=== PATIENT | male | born 1945 | race Caucasian/White ===

== ENCOUNTER 2021-08-13 09:34 | Day surgery (SDCO) | payer MEDICARE ==
[~2021-08-13] VITALS: Ht 177.8 cm; Wt 99.8 kg
[2021-08-13 09:59] LABS: BASOPHIL 0.8 % (0-2); EOSINOPHIL 3.3 % (0-7); HCT 42.3 % (42.0-52.0); HGB 14.2 g/dl (13.2-18.0); LYMPHOCYTE 9.1 % (15-48); MCH 33.6 pg (25.0-31.0); MCHC 33.6 g/dL (32.0-36.0); MONOCYTE 8.6 % (0-12); MPV 9.1 fL (6.0-9.5); NEUTROPHIL 77.2 % (41-80); NRBC 0; PLT 284 K/uL (150-400); RBC 4.23 M/uL (4.70-6.00); RDW 13.3 % (11.5-14.0); WBC 6.1 K/uL (4.0-10.5)
[2021-08-13 10:24] LABS: ALBUMIN 3.3 g/dL (3.4-5.0); BILIRUBIN - TOTAL 0.6 mg/dL (0.2-1.0); BUN/CREAT RATIO (CALC) 22.1 RATIO; CREATININE 1.22 mg/dL (0.67-1.17); GLOBULIN (CALCULATION) 4.6 g/dL; POTASSIUM 4.5 mmol/L (3.5-5.1); TOTAL PROTEIN 7.9 g/dL (6.4-8.2)
[2021-08-13] MEDS ORDERED: CLEOCIN300 MG PO (15:53)
[2021-08-13] MEDS ORDERED: FENOFIBRATE160 MG PO (15:56)
[2021-08-13] MEDS ORDERED: LASIX40 MG PO (15:57)
[2021-08-13] MEDS ORDERED: GLUCOTROL XL5 MG PO (15:57)
[2021-08-13] MEDS ORDERED: HYDROCODON-ACE1 EAC2 PO (15:59)
[2021-08-13] MEDS ORDERED: KLOR-CON 1010 MEQ PO (16:00)
[2021-08-13] MEDS ORDERED: JARDIANCE25 MG PO (16:00)
[2021-08-13] MEDS ORDERED: LISINOPRIL30 MG PO (16:02)
[2021-08-13] MEDS ORDERED: LOVASTATIN20 MG PO (16:03)
[2021-08-13] MEDS ORDERED: METFORMIN HCL500 MG PO (16:05)
[2021-08-13] MEDS ORDERED: FLOMAX0.4 MG PO (16:06)
[2021-08-14 06:10] LABS: BASOPHIL 0.4 % (0-2); EOSINOPHIL 2.7 % (0-7); HCT 44.8 % (42.0-52.0); HGB 14.9 g/dl (13.2-18.0); LYMPHOCYTE 13.9 % (15-48); MCH 33.1 pg (25.0-31.0); MCHC 33.3 g/dL (32.0-36.0); MCV 99.6 fL (78.0-100.0); MONOCYTE 8.2 % (0-12); MPV 9.3 fL (6.0-9.5); NEUTROPHIL 73.8 % (41-80); NRBC 0; PLT 297 K/uL (150-400); RDW 13.2 % (11.5-14.0); WBC 8.3 K/uL (4.0-10.5)
[2021-08-14 06:30] LABS: BUN/CREAT RATIO (CALC) 21.6 RATIO; CREATININE 1.16 mg/dL (0.67-1.17); POTASSIUM 4.6 mmol/L (3.5-5.1); URIC ACID 8.2 mg/dL (3.5-7.2)
[2021-08-14] MEDS ORDERED: COLCRYS0.6 MG PO (09:46)
[2021-08-14] MEDS ORDERED: ZYVOX600 MG PO ×2 (09:48→12:44)
[2021-08-14] MEDS ORDERED: NORCO 5-325 TA1 EACH PO (12:44)
[2021-08-14] MEDS ORDERED: COLCHICINE0.6 M1 PO (12:44)
== END 2021-08-14 12:54 | disposition home or self-care (01) ==
LOC: FIS 09:34 → FMS 14:08
PROVIDERS: Family Medicine; ADMIT Allergy & Immunology Allergy
DX: L03.115 Cellulitis of right lower limb (principal); E11.9 Type 2 diabetes mellitus without complications; N40.0 Benign prostatic hyperplasia without lower urinary tract symptoms; I10 Essential (primary) hypertension; N17.9 Acute kidney failure, unspecified; E78.5 Hyperlipidemia, unspecified; I25.2 Old myocardial infarction; E11.42 Type 2 diabetes mellitus with diabetic polyneuropathy; F17.210 Nicotine dependence, cigarettes, uncomplicated; B35.1 Tinea unguium; Z66 Do not resuscitate; Z79.84 Long term (current) use of oral hypoglycemic drugs; Z88.0 Allergy status to penicillin; Z20.822 Contact with and (suspected) exposure to COVID-19
CPT/HCPCS: 36415; 73610; 73700; 80048; 80053; 84145; 84550; 85025; G0378; J0696; J0878; U0002